=== PATIENT | female | born 2000 | race Caucasian/White ===

== ENCOUNTER 2025-01-08 10:45 | Emergency (ER) | payer OTHER, SELFPAY ==
[2025-01-08 10:47] VITALS: BP 146/98
[2025-01-08 12:43] VITALS: BP 135/87
[2025-01-08] MEDS: ZOFRAN 4 MG IV (12:53)
[2025-01-08 12:54] LABS: Hematocrit 42.5 % (37.0-47.0); Hemoglobin 14.4 g/dL (12.0-16.0); Mean Corp Hgb Conc. 33.9 g/dL (33.0-37.0); Mean Corpuscular Volume 86.0 fL (81.0-99.0); Nucleated Red Blood Cells % 0 %; Platelet Count 370 10^3/uL (130-400); Red Cell Dist. Width 12.8 % (11.5-14.5)
[2025-01-08] MEDS: NSS 1000 IV (12:57)
--- NOTE | 2025-01-08 12:59 | ED.GENMED ---
History of Present Illness
General
Chief Complaint: Rectal Bleeding
Source: patient
Time Seen by Provider: 01/08/25 12:38
History of Present Illness
History of Present Illness:
24 year old Female with past medical history of ADHD presenting to the emergency department for evaluation after she started experiencing GI upset with nausea vomiting and 2 episodes of loose stool overnight, today after her last bowel movement
noticed her stools were darker in color and were intermixed with small streaks of bright red blood. Patient states that she did take some Pepto-Bismol and read online that the Pepto-Bismol could cause her stool to be darker in color but not having
blood which is why she decided to come to the ER for further evaluation. She states she is not in any significant pain, still notes some mild nausea but overall feels much better presently than she did earlier this morning. Patient denies any
known sick contacts. She does note that for the she has had multiple alcoholic beverages which is not atypical for her. Social history was also noted for occasional vape pens with nicotine and THC.
Past History
Past History
ED Past Medical History: Psychiatric
ED Past Surgical History: None
Social History
Tobacco: Vaping
Alcohol: Occasional
Drug: Marijuana
Personal: Single
Living: with family
Review of Systems
Review of Systems
All Other Systems: ROS reviewed and negative except as documented in HPI and ROS
Phy Exam
Physical Exam
Physical Exam:
GENERAL: Alert , in no apparent distress
EYE: clear conjunctiva b/l
HEAD: NCAT
ENT: o/p clr, mmm.
CARDIAC: Regular rate and rhythm .
LUNGS: Clear breath sounds bilaterally, no acute respiratory distress, no wheezes/rales/rhonchi
ABDOMEN: Soft, without focal tenderness, no r/g, no cvat
RECTAL EXAM: Patient deferred exam
NEUROLOGICAL: Alert and oriented
SKIN: Warm and dry, skin intact.
MUSCULOSKELETAL: well perfused.
PSYCH: Normal and appropriate interaction.
Scores
Heart Failure Risk
Heart Failure Risk Score: Not Applicable
Heart Score for Chest Pain Patients
STEMI patient?: Not applicable
Withdrawal Assessment of Alcohol
Withdrawal Assessment Completed?: Not applicable
Course
Orders/Labs/Results
Orders:
Orders
01/08/25 12:42
Type And Crossmatch [Type+Screen] Urgent
Complete Blood Count/With Diff Urgent
Comprehensive Metabolic Panel Urgent
01/08/25 12:50
Ondansetron Injectable [Zofran] 4 mg IV NOW STA
01/08/25 12:57
0.9% Sodium Chloride 1000 ml [Nss] 1,000 ml IV BOLUS
Abnormal Lab Results
01/08/25
12:42
Sodium 134 L mmol/L
(135-145)
Total Protein 9.0 H g/dl
(6.3-8.2)
Albumin 5.2 H g/dl
(3.5-5.0)
01/08/25 12:42
01/08/25 12:42
Vital Signs
Initial and Last Documented VS:
Initial Vital Signs
Temp Pulse Resp BP Pulse Ox
98.4 F 124 18 146/98 99
01/08/25 10:47 01/08/25 10:47 01/08/25 10:47 01/08/25 10:47 01/08/25 10:47
Last Documented Vital Signs
Temp Pulse Resp BP Pulse Ox
98.4 F 96 16 124/86 100
01/08/25 10:47 01/08/25 13:35 01/08/25 12:45 01/08/25 14:01 01/08/25 14:15
MDM/Problems Addressed
Differential Diagnosis Includes:
Gastroenteritis
Alcohol induced gastritis
GERD
Hemorrhoidal bleeding
Medication (pepto) side effects
Minimal concern for upper or significant lower GI bleed
MDM/Problems Addressed:
24-year-old female presenting to the ER for evaluation of GI upset, notes 2 episodes of loose stool and multiple episodes of nonbloody nonbilious emesis. Based off her exam and history I do suspect the Pepto-Bismol is the likely cause for her dark
stools and that the bright red blood that she noticed was likely related to hemorrhoidal bleeding. I do suspect her GI upset was likely caused by the significant alcohol intake over the last few days as well. Patient deferred digital rectal exam.
Labs pending. Fluids and Zofran ordered.
*Pulse Oximetry
SaO2: 100
Oxygen Mode of Delivery: Room air
Patient hypoxic: no
*Critical Care Note
Total Time (30-74mins, 75-104mins- exclusive of procedures): Not Applicable
Patient Management
Escalation/DeEscalation of care consider admission/obs:
Labs are all reassuring. She continues to note at this time she has no symptoms. She continues to decline digital rectal exam. I do suspect the bleeding is most likely hemorrhoidal in nature advised patient avoid alcohol intake for the time
being. Anusol suppositories prescription sent to pharmacy
ED Attending Note
-
Portions of this chart may have been created with voice recognition software.� Occasional wrong word or��sound alike� substitutions may have occurred due to the inherent limitations of voice recognition software.
Discharge Plan
Departure
Patient Disposition: Home (Routine Discharge)
Date of Disposition: 01/08/25
Time of Disposition: 13:36
Patient with high blood pressure during this ER visit?: No
Discharge Problem:
Nausea and vomiting, Bleeding hemorrhoid, Medication side effects
Instructions: Hemorrhoids (DC)
Prescriptions:
New
ondansetron 4 mg tablet,disintegrating
4 mg PO TIDPRN PRN (Reason: nausea/vomiting) Qty: 10 0RF
hydrocortisone acetate [Anusol-HC] 25 mg suppository
25 mg IN HS Qty: 24 0RF
Interventions
Interventions:
*Risk Screen - Suicide Last Done: 01/08/25 10:47
*General Assessment Last Done: 01/08/25 10:47
*Neglect/Abuse Screening Last Done: 01/08/25 10:47
*ED- Fall Risk Assessment Last Done: 01/08/25 12:45
*ED COVID-19 Vaccine History Last Done: 01/08/25 12:24
*ED Influenza Vaccine History Last Done: 01/08/25 12:24
*Nursing Disposition Last Done: 01/08/25 14:33
TJ-Lagzda-Kbqrmuidae Assessment Last Done: 01/08/25 12:45
ED- Cardiac Assessment Last Done: 01/08/25 12:45
ED- Pulmonary Assessment Last Done: 01/08/25 12:45
Discharge Date and Time
Discharge Date/Time: 01/08/25 14:35
Print Language: MONEGASQUE
[2025-01-08 13:00] VITALS: BP 122/63
[2025-01-08 13:09] LABS: ALT (SGPT) 21 U/L (0-35); AST (SGOT) 26 U/L (14-36); Albumin 5.2 g/dl (3.5-5.0); Alkaline Phosphatase 67 U/L (38-126); Blood Urea Nitrogen 9 mg/dl (7-17); Calcium 9.8 mg/dl (8.4-10.2); Carbon Dioxide 25 mmol/L (22-30); Chloride 99 mmol/L (98-107); Glucose 91 mg/dl (70-99); Potassium 4.2 mmol/L (3.5-5.1); Sodium 134 mmol/L (135-145); Total Protein 9.0 g/dl (6.3-8.2); eGFR > 60.00
[2025-01-08 14:01] VITALS: BP 124/86
== END 2025-01-08 14:35 | disposition home or self-care (01) ==
LOC: EMR 10:45
PROVIDERS: EMERGENCY PHYSICIAN Emergency Medicine
DX: R11.2 Nausea with vomiting, unspecified (principal); K64.9 Unspecified hemorrhoids; R19.5 Other fecal abnormalities; T47.6X5A Adverse effect of antidiarrheal drugs, initial encounter; F90.9 Attention-deficit hyperactivity disorder, unspecified type; F12.90 Cannabis use, unspecified, uncomplicated; F17.290 Nicotine dependence, other tobacco product, uncomplicated
CPT/HCPCS: 99284; 96374; 96361; 80053; 85025; 86850; 86900; 86901